=== PATIENT | female | born 1990 | race Caucasian/White ===

== ENCOUNTER 2021-02-07 08:08 | Emergency (ER) | payer OTHER ==
[~2021-02-07] VITALS: Ht 180.3 cm; Wt 119.3 kg
[2021-02-07 09:14] LABS: BORDETELLA PARAPERTUSSIS Not Detected (Not Detectd); BORDETELLA PERTUSSIS Not Detected (Not Detectd); CHLAMYDIA PNEUMONIAE Not Detected (Not Detectd); CORONAVIRUS HKU1 Not Detected (Not Detectd); CORONAVIRUS NL63 Not Detected (Not Detectd); CORONAVIRUS OC43 Not Detected (Not Detectd); CORONOAVIRUS 229E Not Detected (Not Detectd); HUMAN METAPNEUMOVIRUS Not Detected (Not Detectd); HUMAN RHINOVIRUS/ENTEROVIRUS Not Detected (Not Detectd); INFLUENZA A Not Detected (Not Detectd); INFLUENZA B Not Detected (Not Detectd); PARAINFLUENZA VIRUS 1 Not Detected (Not Detectd); PARAINFLUENZA VIRUS 2 Not Detected (Not Detectd); PARAINFLUENZA VIRUS 3 Not Detected (Not Detectd); PARAINFLUENZA VIRUS 4 Not Detected (Not Detectd); RESPIRATORY SYNCYTIAL VIRUS Not Detected (Not Detectd)
[2021-02-07 09:15] LABS: MYCOPLASMA PNEUMONIAE Not Detected (Not Detectd)
[2021-02-07 09:18] LABS: RED BLOOD COUNT 4.42 M/UL (4.00-5.10); WHITE BLOOD COUNT 3.6 K/UL (4.5-11.0)
[2021-02-07 09:55] LABS: BUN/CREATININE RATIO 7 (0-10)
[2021-02-07 10:28] LABS: SARS-CoV-2 DETECTED (Not Detectd)
[2021-02-07] MEDS ORDERED: CEPHALEXIN500 M1 PO (11:54)
== END 2021-02-07 13:38 | disposition home or self-care (01) ==
LOC: ER1 08:08
PROVIDERS: Nurse Practitioner
DX: U07.1 COVID-19 (principal); N39.0 Urinary tract infection, site not specified; Z23 Encounter for immunization; I10 Essential (primary) hypertension; Z88.0 Allergy status to penicillin
CPT/HCPCS: 80048; 81001; 82550; 82553; 84484; 85025; 87081; 87633; 87880; 93005; 99285; M0245

== ENCOUNTER 2021-02-11 07:52 | Inpatient (IN) | payer OTHER ==
[~2021-02-11] VITALS: Ht 180.3 cm; Wt 119.3 kg
[~2021-02-11 07:52] MED LIST: CEPHALEXIN500 M1 PO
[2021-02-11 10:39] LABS: HEMOGLOBIN 12.9 gm/dl (12.3-15.3); RED BLOOD COUNT 4.48 M/UL (4.00-5.10); WHITE BLOOD COUNT 7.1 K/UL (4.5-11.0)
[2021-02-11] MEDS ORDERED: DOCUSATE SODIU100 MG PO (12:53)
[2021-02-11] MEDS ORDERED: IBUPROFEN600 MG PO (12:53)
[2021-02-11] MEDS ORDERED: HYDROCODON-ACE1 EAC4 PO (12:53)
[2021-02-12 07:23] LABS: HEMOGLOBIN 12.6 gm/dl (12.3-15.3)
== END 2021-02-13 13:18 | disposition home or self-care (01) | DRG 786 ==
LOC: GENOP 07:52 → OB 09:13
PROVIDERS: ADMIT Obstetrics & Gynecology
PROC: 3E0234Z Introduction of Serum, Toxoid and Vaccine into Muscle, Percutaneous Approach (ICD-10-PCS; 2021-02-11)
PROC: 8E0ZXY6 Isolation (ICD-10-PCS; 2021-02-11)
PROC: 10D00Z1 Extraction of Products of Conception, Low, Open Approach (ICD-10-PCS; principal; 2021-02-11 10:38)
DX: O13.4 Gestational [pregnancy-induced] hypertension without significant proteinuria, complicating childbirth (principal); U07.1 COVID-19; O98.52 Other viral diseases complicating childbirth; O99.344 Other mental disorders complicating childbirth; F41.9 Anxiety disorder, unspecified; O32.0XX0 Maternal care for unstable lie, not applicable or unspecified; F32.A Depression, unspecified; Z98.890 Other specified postprocedural states; Z37.0 Single live birth; Z3A.37 37 weeks gestation of pregnancy; Z28.21 Immunization not carried out because of patient refusal; Z23 Encounter for immunization
CPT/HCPCS: 36415; 81001; 82800; 85014; 85018; 85025; 90715; C9113; J1170; J1580; J2550; J2704; J2765; J7120